=== PATIENT | female | born 1960 | race Caucasian/White ===

== ENCOUNTER 2019-09-14 22:08 | Emergency (ER) | payer MEDICARE, MEDICAID ==
--- NOTE | 2019-09-14 22:25 | EDM.PDOC ---
ED HPI GENERAL MEDICAL PROBLEM - General Chief Complaint: Respiratory Problem Stated Complaint: SOB Time Seen by Provider: 09/14/19 22:23 - History of Present Illness INITIAL COMMENTS - FREE TEXT/NARRATIVE: 58-year-old female presents to the emergency room with shortness of breath. Patient states she has had increasing shortness of breath over the last 3 weeks or so. She normally gets this way when her iron levels drop. She is got a longstanding history of iron deficiency anemia thought to be related to her lupus. She used to get iron infusions however has not had one in a year she had a CBC checked in July that did not suggest that she needed a new iron infusion. Patient also has underlying asthma she uses her a regular basis and her albuterol on an as-needed basis she seldom uses her albuterol. The patient has had some mild temperature increases at home as high as 100.2 she really does not have much of a cough at this time. Chest Pain Score (Numeric/FACES): 3 - Related Data Allergies Allergy/AdvReac Type Severity Reaction Status Date / Time ferric carboxymaltose Allergy Severe Headache Verified 09/14/19 22:27 [From Injectafer] Sulfa (Sulfonamide Allergy Severe Rash Verified 09/14/19 22:26 Antibiotics) Home Meds: Home Meds Albuterol Sulfate [Proair Respiclick] 90 mcg IH ASDIRECTED 09/14/19 [History] Fluticasone Propion/Salmeterol [Advair 250-50 Diskus] 1 each IH DAILY 09/14/19 [ History] ED ROS GENERAL - Review of Systems Review Of Systems: See Below Constitutional: Reports: No Symptoms HEENT: Reports: No Symptoms Respiratory: Reports: Shortness of Breath. Denies: Cough Cardiovascular: Reports: No Symptoms Endocrine: Reports: No Symptoms GI/Abdominal: Reports: No Symptoms : Reports: No Symptoms Skin: Reports: Other (Rash mask distribution and some peripheral distribution) ED EXAM, GENERAL - Physical Exam Exam: See Below Exam Limited By: No Limitations General Appearance: Alert, No Apparent Distress, Obese Eye Exam: Bilateral Eye: Normal Inspection Ears: Normal External Exam, Normal Canal, Hearing Grossly Normal, Normal TMs Nose: Normal Inspection, Normal Mucosa, No Blood Throat/Mouth: Normal Inspection, Normal Lips, Normal Teeth, Normal Oropharynx, No Airway Compromise Head: Atraumatic, Normocephalic, Other (Mask facial distribution of her rash) Neck: Normal Inspection, Supple, Non-Tender, Full Range of Motion Respiratory/Chest: No Respiratory Distress, Lungs Clear, Normal Breath Sounds Cardiovascular: Regular Rate, Rhythm, No Edema, No Murmur GI/Abdominal: Normal Bowel Sounds, Soft, Non-Tender Back Exam: Normal Inspection. No: CVA Tenderness (L), CVA Tenderness (R) Extremities: Normal Inspection, No Pedal Edema Course - Vital Signs Last Recorded V/S: Last Vital Signs Temp 36.8 C 09/14/19 22:19 Pulse 97 09/14/19 22:19 Resp 16 09/14/19 22:19 BP 154/90 H 09/14/19 22:19 Pulse Ox 98 09/14/19 22:19 - Orders/Labs/Meds Orders: Active Orders 24 hr Category Date Time Status EKG Documentation Completion [RC] STAT Care 09/14/19 22:34 Active Chest 2V [CR] Stat Exams 09/14/19 22:35 Taken Labs: Laboratory Tests 09/14/19 09/14/19 Range/Units 22:41 22:41 WBC 8.53 (3.98-10.04) K/mm3 RBC 4.96 (3.98-5.22) M/mm3 Hgb 13.1 (11.2-15.7) gm/dl Hct 42.2 (34.1-44.9) % MCV 85.1 (79.4-94.8) fl MCH 26.4 (25.6-32.2) pg MCHC 31.0 L (32.2-35.5) g/dl RDW Std Deviation 44.0 (36.4-46.3) fL Plt Count 340 (182-369) K/mm3 MPV 9.8 (9.4-12.3) fl Neut % (Auto) 72.9 H (34.0-71.1) % Lymph % (Auto) 17.8 L (19.3-51.7) % [place] % (Auto) 6.0 (4.7-12.5) % Eos % (Auto) 2.8 (0.7-5.8) Baso % (Auto) 0.4 (0.1-1.2) % Neut # (Auto) 6.22 H (1.56-6.13) K/mm3 Lymph # (Auto) 1.52 (1.18-3.74) K/mm3 [place] # (Auto) 0.51 H (0.24-0.36) K/mm3 Eos # (Auto) 0.24 (0.04-0.36) K/mm3 Baso # (Auto) 0.03 (0.01-0.08) K/mm3 Sodium 144 (136-145) mEq/L Potassium 3.9 (3.5-5.1) mEq/L Chloride 106 (98-107) mEq/L Carbon Dioxide 27 (21-32) mEq/L Anion Gap 14.9 (5-15) BUN 13 (7-18) mg/dL Creatinine 0.7 (0.55-1.02) mg/dL Est Cr Clr Drug Dosing 86.23 mL/min Estimated GFR (MDRD) > 60 (>60) mL/min BUN/Creatinine Ratio 18.6 H (14-18) Glucose 111 H (74-106) mg/dL Calcium 8.9 (8.5-10.1) mg/dL Total Bilirubin 0.3 (0.2-1.0) mg/dL AST 11 L (15-37) U/L ALT 21 (14-59) U/L Alkaline Phosphatase 125 H (46-116) U/L Troponin I < 0.017 (0.00-0.056) ng/mL Total Protein 7.7 (6.4-8.2) g/dl Albumin 3.6 (3.4-5.0) g/dl Globulin 4.1 gm/dL Albumin/Globulin Ratio 0.9 L (1-2) - Re-Assessments/Exams Free Text/Narrative Re-Assessment/Exam: 09/14/19 23:42 Labs look reasonably assuring, certainly no anemia. Chest x-ray shows large hiatal hernia no acute cardiopulmonary changes. I discussed these findings with the patient and she would really like a ferritin level obtained. We will start the patient on Pepcid just to see if this hiatal hernia is contributing to some of her symptoms. The patient does not wish to wait for the ferritin level however it will be forwarded to her regular physician. In her stay here her O2 saturation is always remained stable and vital signs have been stable. Did discuss her hiatal hernia and the patient states that this was identified on a prior EGD but has really never caused her any problems in the past. Departure - Departure Time of Disposition: 23:52 Disposition: Home, Self-Care 01 Clinical Impression: Hiatal hernia - Discharge Information Referrals: Wan Horn MD [Primary Care Provider] - Forms: ED Department Discharge Additional Instructions: Return to the emergency room with any questions problems or worsening symptoms. supervisor title some [id number] famotidine, or Pepcid, the generic famotidine is much more affordable and take 1 every morning and see if this helps with the sense of shortness of breath. Follow-up with your regular physician in 1 week Sepsis Event Note - Focused Exam Vital Signs: Vital Signs Temp Pulse Resp BP Pulse Ox 09/14/19 22:19 36.8 C 97 16 154/90 H 98 Date Exam was Performed: 09/14/19 Time Exam was Performed: 23:42 - My Orders Last 24 Hours: My Active Orders 09/14/19 22:34 EKG Documentation Completion [RC] STAT 09/14/19 22:35 Chest 2V [CR] Stat - Assessment/Plan Last 24 Hours: My Active Orders 09/14/19 22:34 EKG Documentation Completion [RC] STAT 09/14/19 22:35 Chest 2V [CR] Stat
[2019-09-14] MEDS ORDERED: Famotidine 20 MG Tab PO ONE (23:51)
--- NOTE | 2019-09-15 07:51 | CR ---
Chest: 2 views of the chest were obtained. Comparison: No prior chest imaging is available. Heart size is normal. Tortuous thoracic aorta is seen. Large hiatal hernia is noted with air-fluid level. Scattered disc space narrowing is noted within the spine with mild scoliosis. Impression: 1. Large hiatal hernia containing an air-fluid level. 2. Nothing acute is otherwise seen on 2 view chest x-ray. Diagnostic code #2 This report was dictated in MDT
== END 2019-09-15 00:20 | disposition home or self-care (01) ==
LOC: JD.ED 22:08
DX: K44.9 Diaphragmatic hernia without obstruction or gangrene (principal); Z88.2 Allergy status to sulfonamides
CPT/HCPCS: 36415; 71046; 80053; 82728; 84484; 85025; 93005; 99285; A9270

== ENCOUNTER 2022-01-04 17:15 | Emergency (ER) | payer MEDICARE, MEDICAID ==
[2022-01-04] MEDS ORDERED: Diltiazem 25 MG/5 ML SDV IVPUSH ONE ×2 (17:52→18:54)
[2022-01-04] MEDS ORDERED: Diltiazem 125 MG in Sodium Chloride 0.9% 100 ML IV SCH (18:00)
[2022-01-04] MEDS ORDERED: Sodium Chloride 0.9% 1,000 ML IV SCH (18:00)
[2022-01-04] MEDS ORDERED: Sodium Chloride 0.9% 1,000 ML IV ONE (20:04)
[2022-01-04] MEDS ORDERED: Ondansetron 4 MG/2 ML SDV IVPUSH ONE (20:21)
[2022-01-04] MEDS ORDERED: Apixaban 5 MG Tab PO ONE ×2 (20:24→20:32)
== END 2022-01-04 21:10 ==
LOC: JD.ED 17:15
DX: I48.91 Unspecified atrial fibrillation (principal); J45.909 Unspecified asthma, uncomplicated; Z88.8 Allergy status to other drugs, medicaments and biological substances; Z79.899 Other long term (current) drug therapy; Z20.822 Contact with and (suspected) exposure to COVID-19
CPT/HCPCS: 36415; 71045; 80053; 81001; 82553; 82728; 83540; 83605; 83735; 83880; 84443; 84466; 84484; 85007; 85027; 85610; 85652; 85730; 86038; 86140; 86430; 93005; 96365; 96366; 96375; 96376; 99285; A9270; J2405; J3490; J7030; U0002

== ENCOUNTER 2024-08-01 07:05 | Inpatient (IN) | payer MEDICAID, MEDICARE ==
[2024-08-01] MEDS: Ondansetron 4 MG/2 ML SDV IVPUSH ONE ×2 (08:01→09:20)
[2024-08-01] MEDS: fentaNYL 100 MCG/2 ML SDV IVPUSH ONE ×3 (08:02→11:59)
[2024-08-01 08:03] LABS: BASOPHILS PERCENT AUTO 0.3 % (0.0-1.0); EOSINOPHILS PERCENT AUTO 0.1 % (0.0-6.0); HEMATOCRIT 43.6 % (37.0-47.0); HEMOGLOBIN 14.1 gm/dl (12.0-16.0); IMMATURE GRAN ABSOLUTE AUTO 0.03 K/mm3 (0.00-0.05); IMMATURE GRAN PERCENT AUTO 0.3 % (0.0-0.4); LYMPHOCYTES ABSOLUTE AUTO 0.6 K/mm3 (1.0-4.8); LYMPHOCYTES PERCENT AUTO 6.2 % (24.0-44.0); MEAN CORPUSCULAR HEMOGLOBIN 27.2 pg (28.0-32.0); MEAN CORPUSCULAR HGB CONC 32.3 g/dl (32.0-36.0); MEAN CORPUSCULAR VOLUME 84.2 fl (83.0-99.0); MEAN PLATELET VOLUME 10.3 fl (9.4-12.3); MONOCYTES ABSOLUTE AUTO 0.2 K/mm3 (0.0-0.8); MONOCYTES PERCENT AUTO 2.4 % (0.0-8.0); NEUTROPHILS ABSOLUTE AUTO 8.6 K/mm3 (1.8-7.7); NEUTROPHILS PERCENT AUTO 90.7 % (41.0-71.0); PLATELET COUNT,PLT 282 K/mm3 (150-400); RED BLOOD CELL COUNT 5.18 M/mm3 (4.10-5.30); WHITE BLOOD CELL COUNT,WBC 9.43 K/mm3 (3.9-11.3)
[2024-08-01] MEDS: Pantoprazole 40 MG Vial IVPUSH ONE (08:04)
[2024-08-01] MEDS: Sodium Chloride 0.9% 1,000 ML IV ONE (08:07)
[2024-08-01 08:12] LABS: A/G RATIO 1.1 (1-2); ANION GAP 12.2 (5-15); BILIRUBIN TOTAL 0.5 mg/dL (0.2-1.0); BUN/CREATININE RATIO 14.3 (14-18); CALCIUM 9.6 mg/dL (8.5-10.1); CREATININE 0.7 mg/dL (0.55-1.02); EST CRCL DRUG DOSING (CG) 71.96 mL/min; POTASSIUM,K 3.2 mEq/L (3.5-5.1); PROTEIN TOTAL,TP 7.8 g/dl (6.4-8.2)
[2024-08-01 08:26] LABS: SLIDE REVIEW ABNORMAL SMEAR
[2024-08-01] MEDS: Potassium Chloride 20 MEQ Tab.ER PO ONE (08:55)
[2024-08-01] MEDS: Metoclopramide 10 MG/2 ML SDV IVPUSH ONE (11:13)
[2024-08-01] MEDS: fentaNYL 100 MCG/2 ML SDV ONE (11:57)
[2024-08-01] MEDS ORDERED: Propofol 200 MG/20 ML SDV ONE (14:08)
[2024-08-01] MEDS ORDERED: Midazolam 1 MG/ML 2 ML SDV ONE (14:09)
[2024-08-01] MEDS ORDERED: fentaNYL 100 MCG/2 ML SDV ONE (14:09)
[2024-08-01] MEDS ORDERED: Succinylcholine 200 MG/10 ML MDV ONE (14:18)
[2024-08-01] MEDS ORDERED: Phenylephrine 1% 10 MG/ML SDV ONE (14:18)
[2024-08-01] MEDS ORDERED: Ondansetron 4 MG/2 ML SDV ONE (15:00)
[2024-08-01 15:01] LABS: HEMATOCRIT 45.8 % (37.0-47.0); HEMOGLOBIN 14.3 gm/dl (12.0-16.0)
[2024-08-01] MEDS ORDERED: HYDROmorphone 0.5 MG/0.5 ML Syringe IVPUSH PRN (15:14)
[2024-08-01] MEDS ORDERED: fentaNYL 100 MCG/2 ML SDV IVPUSH PRN (15:14)
[2024-08-01] MEDS ORDERED: Ondansetron 4 MG/2 ML SDV IVPUSH PRN (15:14)
[2024-08-01] MEDS ORDERED: oxyCODONE 5 MG Tab PO PRN (15:39)
[2024-08-01] MEDS ORDERED: Pantoprazole 40 MG Tab.CR PO SCH (16:00)
[2024-08-01] MEDS ORDERED: Diclofenac Sodium 1% Gel 100 GM Tube TOP PRN (16:09)
[2024-08-01] MEDS ORDERED: LORazepam 1 MG Tab PO PRN (16:17)
[2024-08-01 16:22] LABS: MAGNESIUM 1.9 mg/dL (1.8-2.4); PHOSPHORUS 2.3 mg/dL (2.6-4.7); TSH 1.249 uIU/mL (0.358-3.74)
[2024-08-01] MEDS: Iopamidol 612 MG/ML 30 ML SDV IVPUSH ONE (16:36)
[2024-08-01] MEDS: Iopamidol 612 MG/ML 100 ML Bottle IVPUSH ONE (16:36)
[2024-08-01] MEDS: Sodium Chloride 0.9% 10 ML Syringe FLUSH ONE (16:36)
[2024-08-01] MEDS: Potassium Chloride 10 MEQ in Premix Bag 1 BAG IV SCH (16:44)
[2024-08-01] MEDS: Sodium Chloride 0.9% 500 ML IV SCH (16:44)
[2024-08-01] MEDS: Metoclopramide 10 MG/2 ML SDV IVPUSH SCH ×2 (16:45→20:02)
[2024-08-01] MEDS ORDERED: Sodium Chloride 0.9% 250 ML IV SCH (16:45)
[2024-08-01] MEDS: Acetaminophen/HYDROcodone 325-10 MG Tab PO PRN (17:02)
[2024-08-01] MEDS: LORazepam 2 MG/ML SDV IVPUSH PRN (17:03)
[2024-08-01] MEDS: Pantoprazole 40 MG Vial IVPUSH SCH (20:02)
[2024-08-01] MEDS: Acetaminophen 325 MG Tab PO PRN (23:06)
[2024-08-01] MEDS: Formoterol/Mometasone 100-5 MCG 8.8 GM Inhaler INH PRN (23:54)
[2024-08-01] MEDS: Albuterol 6.7 GM Inhaler INH PRN (23:55)
[2024-08-02 04:40] LABS: BASOPHILS PERCENT AUTO 0.5 % (0.0-1.0); EOSINOPHILS PERCENT AUTO 0.6 % (0.0-6.0); HEMATOCRIT 34.9 % (37.0-47.0); IMMATURE GRAN ABSOLUTE AUTO 0.01 K/mm3 (0.00-0.05); IMMATURE GRAN PERCENT AUTO 0.2 % (0.0-0.4); LYMPHOCYTES ABSOLUTE AUTO 1.6 K/mm3 (1.0-4.8); LYMPHOCYTES PERCENT AUTO 24.8 % (24.0-44.0); MEAN CORPUSCULAR HGB CONC 31.5 g/dl (32.0-36.0); MEAN CORPUSCULAR VOLUME 85.7 fl (83.0-99.0); MEAN PLATELET VOLUME 10.1 fl (9.4-12.3); MONOCYTES ABSOLUTE AUTO 0.6 K/mm3 (0.0-0.8); MONOCYTES PERCENT AUTO 9.2 % (0.0-8.0); NEUTROPHILS ABSOLUTE AUTO 4.2 K/mm3 (1.8-7.7); NEUTROPHILS PERCENT AUTO 64.7 % (41.0-71.0); PLATELET COUNT,PLT 197 K/mm3 (150-400); RED BLOOD CELL COUNT 4.07 M/mm3 (4.10-5.30); WHITE BLOOD CELL COUNT,WBC 6.54 K/mm3 (3.9-11.3)
[2024-08-02 05:10] LABS: ALBUMIN 2.9 g/dl (3.4-5.0); ANION GAP 9.3 (5-15); BILIRUBIN TOTAL 0.6 mg/dL (0.2-1.0); BUN/CREATININE RATIO 13.3 (14-18); CALCIUM 8.7 mg/dL (8.5-10.1); CREATININE 0.6 mg/dL (0.55-1.02); EST CRCL DRUG DOSING (CG) 83.95 mL/min; MAGNESIUM 1.9 mg/dL (1.8-2.4); POTASSIUM,K 3.3 mEq/L (3.5-5.1); PROTEIN TOTAL,TP 5.8 g/dl (6.4-8.2)
[2024-08-02] MEDS ORDERED: Formoterol/Mometasone 100-5 MCG 8.8 GM Inhaler INH SCH (06:00)
[2024-08-02] MEDS: Potassium Phosphates 30 MMOLE in Sodium Chloride 0.9% 500 ML IV ONE (07:45)
[2024-08-02] MEDS ORDERED: Non-Formulary Medication 1 Each (Fluticasone Propion/Salmeterol [Advair 250-50 Diskus] 1 E IH SCH (09:00)
[2024-08-02] MEDS ORDERED: Formoterol/Mometasone 200-5 MCG 8.8 GM Inhaler IH SCH (09:00)
[2024-08-02] MEDS: Formoterol/Mometasone 100-5 MCG 8.8 GM Inhaler INH SCH (09:01)
[2024-08-02] MEDS: Oxybutynin 5 MG Tab.ER PO SCH (10:24)
[2024-08-02] MEDS: Folic Acid 1 MG Tab PO SCH (10:24)
[2024-08-02] MEDS: Enoxaparin 40 MG/0.4 ML Syringe SUBCUT SCH (10:24)
[2024-08-02] MEDS ORDERED: Potassium Chloride 10 MEQ in Premix Bag 1 BAG IV SCH (10:30)
[2024-08-02] MEDS: Potassium Chloride 10 MEQ in Premix Bag 1 BAG IV SCH (12:22)
== END 2024-08-02 16:50 | disposition home or self-care (01) | DRG 392 ==
LOC: JD.ED 07:05 → JD.SDS 14:04 → JD.MS 15:30
PROVIDERS: ADMIT Student in an Organized Health Care Education/Training Program; ATTEND Surgery
PROC: 0DJ08ZZ Inspection of Upper Intestinal Tract, Via Natural or Artificial Opening Endoscopic (ICD-10-PCS; principal; 2024-08-01 14:30)
DX: K31.84 Gastroparesis (principal); K44.9 Diaphragmatic hernia without obstruction or gangrene; I48.0 Paroxysmal atrial fibrillation; I71.9 Aortic aneurysm of unspecified site, without rupture; D50.9 Iron deficiency anemia, unspecified; Z68.38 Body mass index [BMI] 38.0-38.9, adult; Z66 Do not resuscitate; F11.29 Opioid dependence with unspecified opioid-induced disorder; G89.4 Chronic pain syndrome; M79.7 Fibromyalgia; I35.0 Nonrheumatic aortic (valve) stenosis; F41.9 Anxiety disorder, unspecified; K80.20 Calculus of gallbladder without cholecystitis without obstruction; M35.3 Polymyalgia rheumatica; E86.0 Dehydration; Q66.91 Congenital deformity of feet, unspecified, right foot; N20.0 Calculus of kidney; Q66.92 Congenital deformity of feet, unspecified, left foot; D64.9 Anemia, unspecified; K29.00 Acute gastritis without bleeding; H54.7 Unspecified visual loss; K20.90 Esophagitis, unspecified without bleeding; E66.9 Obesity, unspecified; J45.909 Unspecified asthma, uncomplicated; Z88.2 Allergy status to sulfonamides; Z88.8 Allergy status to other drugs, medicaments and biological substances; Z79.899 Other long term (current) drug therapy; Z79.82 Long term (current) use of aspirin
CPT/HCPCS: 36415; 71045; 71045-26; 74177; 74177-26; 80053; 83735; 84100; 84443; 84484; 85014; 85018; 85025; 85379; 86850; 86900; 86901; 86922; 93005; 94640; 94760; 99222; 99239; A9270-GY; J0330; J1650; J2060; J2250; J2371; J2405; J2470; J2704; J2765; J3010; J3480; J3490; J7030; J7040

== ENCOUNTER 2024-10-13 03:07 | Emergency (ER) | payer MEDICARE, MEDICAID ==
[2024-10-13] MEDS ORDERED: Sodium Chloride 0.9% 10 ML Syringe FLUSH PRN (03:36)
[2024-10-13] MEDS: Metoclopramide 10 MG/2 ML SDV IVPUSH ONE (04:01)
[2024-10-13] MEDS: fentaNYL 100 MCG/2 ML SDV IVPUSH ONE ×2 (04:02→05:22)
[2024-10-13] MEDS: Pantoprazole 40 MG Vial IVPUSH ONE (04:02)
[2024-10-13] MEDS: Sodium Chloride 0.9% 1,000 ML IV ONE (04:02)
[2024-10-13 04:23] LABS: BASOPHILS PERCENT AUTO 0.3 % (0.0-1.0); HEMATOCRIT 46.2 % (37.0-47.0); HEMOGLOBIN 14.8 gm/dl (12.0-16.0); IMMATURE GRAN ABSOLUTE AUTO 0.03 K/mm3 (0.00-0.05); IMMATURE GRAN PERCENT AUTO 0.3 % (0.0-0.4); LYMPHOCYTES ABSOLUTE AUTO 0.6 K/mm3 (1.0-4.8); LYMPHOCYTES PERCENT AUTO 5.7 % (24.0-44.0); MEAN CORPUSCULAR HEMOGLOBIN 26.8 pg (28.0-32.0); MEAN CORPUSCULAR VOLUME 83.7 fl (83.0-99.0); MONOCYTES ABSOLUTE AUTO 0.2 K/mm3 (0.0-0.8); MONOCYTES PERCENT AUTO 1.9 % (0.0-8.0); NEUTROPHILS ABSOLUTE AUTO 9.8 K/mm3 (1.8-7.7); NEUTROPHILS PERCENT AUTO 91.8 % (41.0-71.0); PLATELET COUNT,PLT 293 K/mm3 (150-400); RED BLOOD CELL COUNT 5.52 M/mm3 (4.10-5.30); WHITE BLOOD CELL COUNT,WBC 10.68 K/mm3 (3.9-11.3)
[2024-10-13 04:38] LABS: ALBUMIN 4.4 g/dl (3.4-5.0); ANION GAP 13.7 (5-15); BILIRUBIN TOTAL 0.6 mg/dL (0.2-1.0); CREATININE 0.8 mg/dL (0.55-1.02); EST CRCL DRUG DOSING (CG) 62.15 mL/min; MAGNESIUM 2.1 mg/dL (1.8-2.4); POTASSIUM,K 3.7 mEq/L (3.5-5.1); PROTEIN TOTAL,TP 8.7 g/dl (6.4-8.2)
[2024-10-13] MEDS ORDERED: Ondansetron 4 MG/2 ML SDV IVPUSH ONE (05:07)
[2024-10-13] MEDS: LORazepam 2 MG/ML SDV IVPUSH ONE (05:21)
== END 2024-10-13 06:30 | disposition home or self-care (01) ==
LOC: JD.ED 03:07
DX: K29.00 Acute gastritis without bleeding (principal); I10 Essential (primary) hypertension; Z79.899 Other long term (current) drug therapy; Z79.84 Long term (current) use of oral hypoglycemic drugs; Z88.2 Allergy status to sulfonamides; Z88.8 Allergy status to other drugs, medicaments and biological substances
CPT/HCPCS: 36415; 71045; 80053; 83735; 84484; 85025; 96361; 96374; 96375; 96376; 99284; J2060; J2470; J2765; J3010; J7030